=== PATIENT | male | born 1965 | race Caucasian/White ===

== ENCOUNTER → 2019-03-07 | Day surgery (SDC) | payer BC ==
[2019-03-06 14:37] LABS: BASOPHILS % 0.3 % (0.0-1.0); EOSINOPHILS # (AUTO) 0.2 (0.0-0.4); EOSINOPHILS % 3.1 % (0.0-6.0); HEMATOCRIT 41.2 % (38.2-49.6); HEMOGLOBIN 13.9 g/dL (14.0-18.0); LYMPHOCYTES # (AUTO) 1.7 (1.0-3.2); LYMPHOCYTES % 23.3 % (18.0-39.1); MEAN CORPUSCULAR HEMOGLOBIN 31.2 pg (28-32); MEAN CORPUSCULAR HGB CONC 33.7 g/dL (31-35); MEAN CORPUSCULAR VOLUME 92.6 fL (81-99); MONOCYTES # (AUTO) 0.6 (0.2-0.8); MONOCYTES % 8.1 % (4.4-11.3); NEUTROPHILS # (AUTO) 4.6 (2.1-6.9); NEUTROPHILS % 64.9 % (38.7-80.0); PLATELET COUNT 160 x10e3/uL (140-360); RED BLOOD COUNT 4.45 x10e6/uL (4.3-5.7); RED CELL DISTRIBUTION WIDTH 12.1 % (11.7-14.4)
[2019-03-06 14:49] LABS: INR 0.96; PROTHROMBIN TIME 13.3 seconds (11.9-14.5)
[2019-03-06 14:54] LABS: ANION GAP 11.7 mmol/L (8-16); BLOOD UREA NITROGEN 9 mg/dL (7-26); BUN/CREATININE RATIO 9 (6-25); CALCIUM 9.3 mg/dL (8.4-10.2); CARBON DIOXIDE 28 mmol/L (22-29); CHLORIDE 104 mmol/L (98-107); EST GLOMERULAR FILTRATION RATE > 60 ML/MIN (60-); GLUCOSE 95 mg/dL (74-118); POTASSIUM 3.7 mmol/L (3.5-5.1); SODIUM 140 mmol/L (136-145)
--- NOTE | 2019-03-06 15:42 | Diagnostic Imaging Report ---
EXAMINATION: CHEST 2 VIEWS INDICATION: Pre-operative COMPARISON: None FINDINGS: TUBES and LINES: None. LUNGS: The lung volumes are normal. No focal consolidation or pulmonary edema. PLEURA: No pleural effusion or pneumothorax. HEART AND MEDIASTINUM: The cardiomediastinal silhouette is normal in size and contour. BONES AND SOFT TISSUES: No acute fracture or dislocation. UPPER ABDOMEN: No free air under the diaphragm. IMPRESSION: No focal pneumonia or pulmonary edema. Signed by: Sam Dickerson MD on 03/06/2019 3:39 PM
[~2019-03-07] MED LIST: ACETAMINOPHEN 1000 MG/100 ML IV ONE; ACETAMINOPHEN/CODEINE 300MG - 30MG TAB ONE; ALLOPURINOL300 MG PO; AMLODIPINE-BEN1 EAC3 PO; ATORVASTATIN CA10 MG PO; BUPIVACAINE HCL 0.5% INJ 30 ML VIAL INJ ONE; CEFTRIAXONE SOD 1 GM/NS 50 ML 50 ML IV ONE; DEXAMETHASONE SOD PHOS INJ 4 MG/ML VIAL ONE; FENTANYL CITRATE/PF 100MCG/2 ML INJ ONE; HYDROMORPHONE 2MG/ML 2 MG/ML ML ONE; KETOROLAC TROMETHAMINE 30 MG/ML VIAL ONE; LIDOCAINE HCL 1% LOCAL INJ 20 ML VIAL ONE; LIDOCAINE HCL 2% LOCAL INJ 5 ML SDV VIAL INJ ONE; MIDAZOLAM HCL 2 MG/2 ML VIAL ONE; ONDANSETRON HCL INJ 2MG/ML 2ML 2 MG/ML VIAL ONE; PROPOFOL IV EMULSION 10 MG/ML 20 ML VIAL ONE; SEVOFLURANE INHAL SOLN 250 ML PEN BTL ONE
--- OUTSIDE RECORDS SUMMARY | 2019-03-07 08:33 | XMS REPORT ---
Author Author [facility] Address Unknown Phone Unavailable Care Team Providers Care Biomedical Equipment Specialist Name Role Phone Dillon HARMAN Unavailable Unavailable Problems This patient has no known problems. Allergies, Adverse Reactions, Alerts This patient has no known allergies or adverse reactions. Medications This patient has no known medications. Results Test Description Test Time Test Comments Text Results Atomic Results Result Comments CHEST 2 VIEWS 2019-03-06 15:38:00 [place] [address] Patient Name: MATTHEW MCALLISTER MR #: [id number] : 1965 Age/Sex: 53/M Req #: [id number] [facility] Physician: Ordered by: FELIPE HARMAN MD Report #: [id number] Location: OR Room/Bed: Procedure: [id number] DX/CHEST 2 VIEWS Exam Date: 03/06/19 Exam Time: 1422 REPORT STATUS: Signed EXAMINATION: CHEST 2 VIEWS INDICATION: Pre-operative COMPARISON: None FINDINGS: TUBES and LINES: None. LUNGS: The lung volumes are normal. No focal consolidation or pulmonary edema. PLEURA: No pleural effusion or pneumothorax. HEART AND MEDIASTINUM: The cardiomediastinal silhouette is normal in size and contour. BONES AND SOFT TISSUES: No acute fracture or dislocation. UPPER ABDOMEN: No free air under the diaphragm. IMPRESSION: No focal pneumonia or pulmonary edema. Signed by: Jessy Dickerson MD on 03/06/2019 3:39 PM Dictated By: JESSY DICKERSON MD [id number] Transcribed By: JOSE on 03/06/19 153 COPY TO: FELIPE HARMAN MD
--- NOTE | 2019-03-07 12:51 | Operative Report ---
DATE OF PROCEDURE: 03/07/2019 SURGEON: Ulises Zurita MD PREOPERATIVE DIAGNOSIS: Massive left hydrocele about 250 to 300 mL of fluid. POSTOPERATIVE DIAGNOSIS: Massive left hydrocele about 250 to 300 mL of fluid. OPERATION: Left scrotal exploration and left hydrocelectomy. TILESETTER: ZELDA Barton. ANESTHESIA: General. INDICATION: Mr. López is a 53-year-old male who presented with massive left scrotal mass. Scrotal ultrasound showed a massive left hydrocele. DESCRIPTION OF PROCEDURE: This patient was placed on the table in the supine position and was prepped and draped in the sterile manner after satisfactory anesthesia. A longitudinal incision over the anterolateral border of the left hemiscrotum, incising the skin and the dartos muscle. The hydrocele sac was identified and isolated, and then reducing the fluid in the hydrocele by placing an 18-gauge needle and sucking about 250 mL. The anterior surface of the hydrocele sac the tunica vaginalis was then incised longitudinally. The remainder part of the hydrocele fluid was removed. The extra tunica vaginalis was then excised. Hemostasis was obtained using the electrocautery. The tunica vaginalis was then bottlenecked behind the left testicle and both edges were approximated continuously using 3-0 Vicryl. Hemostasis was very satisfactorily. The testicle was then delivered inside the scrotal sac. A 0.25-inch Albert drain was placed through a separate stab incision at the most redundant point of the scrotum to drain any fluid that was oozing. The dartos muscle was approximated continuously using 3-0 Vicryl. The skin was approximated interruptedly using 4-0 Vicryl. A sterile dressing was applied. The patient tolerated the procedure well and was taken to the recovery room in satisfactory condition. Plan for this patient is to have ice pack on the scrotum. Keflex 500 mg one 4 times a day for 10 days. Tylenol No. 3 one every 4 to 6 hours p.r.n. and was given 40. He is to return to the office on Tuesday for removal of the drain. Ulises Zurita MD MA/MICHAEL /[id number]
[2019-03-07 13:40] VITALS: BP 149/89
== END | disposition home or self-care (01) ==
LOC: OR 08:30
PROVIDERS: ATTEND Specialist
DX: N43.3 Hydrocele, unspecified (principal); E78.5 Hyperlipidemia, unspecified; I10 Essential (primary) hypertension; G47.33 Obstructive sleep apnea (adult) (pediatric); Z90.5 Acquired absence of kidney; Z01.810 Encounter for preprocedural cardiovascular examination; Z01.812 Encounter for preprocedural laboratory examination; Z01.818 Encounter for other preprocedural examination
CPT/HCPCS: 36415; 55040; 71046; 80048; 85025; 85610; 88304; 93005; J0131; J0696; J1100; J1170; J1885; J2001 ×2; J2250; J2405; J2704; J3010